=== PATIENT | male | born 1975 | race Caucasian/White ===

== ENCOUNTER 2018-08-04 20:30 | Emergency (ER) | payer MEDICAID ==
[2018-08-04] MEDS ORDERED: Proparacaine 0.5% Ophth Soln 15 ML Bottle EYERT ONE (20:51)
[2018-08-04 20:54] VITALS: BP 113/76
--- NOTE | 2018-08-04 21:16 | EDM.PDOC ---
ED HPI GENERAL MEDICAL PROBLEM - General Chief Complaint: ENT Problem Stated Complaint: SOMETHING IN EYE Time Seen by Provider: 08/04/18 20:45 Source of Information: Reports: Patient History Limitations: Reports: No Limitations - History of Present Illness INITIAL COMMENTS - FREE TEXT/NARRATIVE: 42-year-old male was working with metal today when he felt something touches right eye, this happened about 7 hours ago. Since that time he has had a persistent foreign body sensation and pain in his right eye. No visual disturbance but it's hard to keep his eye open, he has photophobia. Onset: Sudden Location: Reports: Other (Right eye) Severity: Moderate - Related Data Allergies Allergy/AdvReac Type Severity Reaction Status Date / Time No Known Allergies Allergy Verified 03/08/16 11:36 Home Meds: Home Meds NK [No Known Home Meds] 11/09/13 [History] Past Medical History - Past Health History Medical/Surgical History: Denies Medical/Surgical History Musculoskeletal History: Reports: Fracture - Infectious Disease History Infectious Disease History: Reports: Chicken Pox - Past Surgical History Musculoskeletal Surgical History: Reports: Arthroscopic Knee, Other (See Below) ED ROS GENERAL - Review of Systems Review Of Systems: See Below Constitutional: Denies: Fever, Chills HEENT: Reports: Eye Pain Respiratory: Denies: Shortness of Breath GI/Abdominal: Denies: Nausea, Vomiting Neurological: Denies: Headache Psychiatric: Reports: No Symptoms ED EXAM GENERAL W FULL EYE - Physical Exam Exam: See Below Exam Limited By: No Limitations General Appearance: Alert, Mild Distress Eye Exam: Right Eye: Foreign Body (Metal foreign body under the right upper eyelid) Eyelids: Right: Foreign Body Conjunctiva & Sclera: Right: Injected Cornea Exam: Right: Corneal Abrasion (Small abrasion along the upper aspect of the cornea correlating with the found metal foreign body under the eyelid) Course - Vital Signs Last Recorded V/S: Last Vital Signs Temp 97.3 F 08/04/18 21:18 Pulse 69 08/04/18 21:18 Resp 16 08/04/18 21:18 BP 113/76 08/04/18 21:18 Pulse Ox 100 08/04/18 21:18 - Orders/Labs/Meds Meds: Medications Discontinued Medications Generic Name Dose Route Start Last Admin Trade Name Freq PRN Reason Stop Dose Admin Proparacaine HCl 1 ml 08/04/18 20:51 08/04/18 21:10 Proparacaine 0.5% Ophth Soln EYERT 08/04/18 20:52 3 drop ONETIME ONE Administration - Re-Assessments/Exams Free Text/Narrative Re-Assessment/Exam: 08/04/18 21:14 Initially the right eye was anesthetized with proparacaine which almost immediately had complete relief. The eye was then examined and when the lids were inverted small metallic foreign body was found underneath the right upper eyelid. He was removed with a sterile Q-tip. Floor seen staining was then done with the right eye and abrasion correlating with the foreign body was seen on the cornea. No further foreign bodies were found, no slit-lamp exam was necessary. Patient was discharged on gentamicin eyedrops for the next 3 days and can follow-up with optometry if not significantly improved in the next 1-2 days. Departure - Departure Time of Disposition: 21:29 Disposition: Home, Self-Care 01 Condition: Good Clinical Impression: Foreign body of eyelid, right - Discharge Information Instructions: Eye Foreign Body Referrals: PCP,None [Primary Care Provider] - Forms: ED Department Discharge Care Plan Goals: Use 2 drops in the right eye 3-4 times a day for the next 3 days while healing. Recheck with optometry in the next 1-2 days if not improving satisfactorily.
== END 2018-08-04 21:28 | disposition home or self-care (01) ==
LOC: JP.ED 20:30
DX: T15.11XA Foreign body in conjunctival sac, right eye, initial encounter (principal)
CPT/HCPCS: 65220; 99283; A9270

== ENCOUNTER 2019-07-14 14:36 | Emergency (ER) | payer MEDICAID ==
[2019-07-14 15:48] VITALS: BP 106/58
[2019-07-14] MEDS ORDERED: Diphtheria,Pertussis(Acell),Tetanus Vaccine 0.5 ML SDV IM ONE (16:00)
[2019-07-14] MEDS ORDERED: Bacitracin Oint 1 GM U/D Packet TOP ONE (16:03)
--- NOTE | 2019-07-14 16:06 | EDM.PDOC ---
ED HPI GENERAL MEDICAL PROBLEM - General Chief Complaint: Laceration Stated Complaint: CUT FINGER Time Seen by Provider: 07/14/19 16:00 Source of Information: Reports: Patient, RN Notes Reviewed History Limitations: Reports: No Limitations - History of Present Illness INITIAL COMMENTS - FREE TEXT/NARRATIVE: 43-year-old gentleman presents emergency department today with a laceration to digit #4 left hand he injured himself on a piece of tin he needs a tetanus - Related Data Allergies Allergy/AdvReac Type Severity Reaction Status Date / Time No Known Allergies Allergy Verified 07/14/19 15:51 Home Meds: Home Meds NK [No Known Home Meds] 11/09/13 [History] Past Medical History Musculoskeletal History: Reports: Fracture - Infectious Disease History Infectious Disease History: Reports: Chicken Pox - Past Surgical History Musculoskeletal Surgical History: Reports: Arthroscopic Knee Social & Family History - Tobacco Use Smoking Status *Q: Current Every Day Smoker Years of Tobacco use: 20 Packs/Tins Daily: 1.5 - Caffeine Use Caffeine Use: Reports: Soda - Recreational Drug Use Recreational Drug Use: No ED ROS GENERAL - Review of Systems Review Of Systems: See Below Musculoskeletal: Reports: No Symptoms Skin: Reports: Wound Neurological: Reports: No Symptoms ED EXAM, SKIN/RASH Exam: See Below Text/Narrative:: Examination of the left hand digit #4 there is a laceration completely through the dermis creating a skin flap on the pad of the distal aspect of digit number for full range of motion of all digits sensation is lost the pad however remainder of sensation and is intact around the finger radial pulses +2 ED SKIN PROCEDURES - Laceration/Wound Repair Left Digit - 4th (Ring) Appearance: Irregular, Mildly Contaminated Distal NVT: Neuro & Vascular Intact, No Tendon Injury Anesthetic Type: Digital Local Anesthesia - Lidocaine (Xylocaine): 1% Plain Local Anesthetic Volume: 2cc Skin Prep: Saline Saline Irrigation (cc's): 120 Exploration/Debridement/Repair: Wound Explored, In a Bloodless Field, Explored to Base Closed with: Sutures Lac/Wound length In cm: 4.0 Suture Size: 4-0 # of Sutures: 7 Suture Type: Nylon Sterile Dressing Applied: Nurse Tetanus Status Addressed: Yes Complications: No Course - Vital Signs Last Recorded V/S: Last Vital Signs Temp 96.2 F 07/14/19 15:54 Pulse 55 L 07/14/19 15:54 Resp 16 07/14/19 15:54 BP 106/58 L 07/14/19 15:54 Pulse Ox 96 07/14/19 15:54 - Orders/Labs/Meds Orders: Active Orders 24 hr Category Date Time Status Vaccines to be Administered [RC] PER UNIT ROUTINE Care 07/14/19 16:00 Active Meds: Medications Discontinued Medications Generic Name Dose Route Start Last Admin Trade Name Saran PRN Reason Stop Dose Admin Bacitracin 1 dose 07/14/19 16:03 07/14/19 16:09 Bacitracin Oint 1 Gm TOP 07/14/19 16:04 1 dose ONETIME ONE Administration Diphtheria/Tetanus/Acell Pertussis 0.5 ml 07/14/19 16:00 07/14/19 16:09 Adacel IM 07/14/19 16:01 0.5 ml .ONCE ONE Administration Lidocaine HCl 5 ml 07/14/19 16:03 07/14/19 16:10 Xylocaine-Mpf 1% INJECT 07/14/19 16:04 5 ml ONETIME ONE Administration Departure - Departure Time of Disposition: 16:39 Disposition: Home, Self-Care 01 Condition: Good Clinical Impression: Finger laceration Qualifiers: Encounter type: initial encounter Finger: ring finger Damage to nail status: without damage Foreign body presence: without foreign body Laterality: left Qualified Code(s): S61.215A - Laceration without foreign body of left ring finger without damage to nail, initial encounter - Discharge Information Instructions: Wound Care, Adult Referrals: PCP,None [Primary Care Provider] - Forms: ED Department Discharge Additional Instructions: Take full course of antibiotics, follow wound care instruction sheet, suture removal in 10 days, return to the emergency department or follow-up with primary care for suture removal - My Orders Last 24 Hours: My Active Orders 07/14/19 16:00 Vaccines to be Administered [RC] PER UNIT ROUTINE - Assessment/Plan Last 24 Hours: My Active Orders 07/14/19 16:00 Vaccines to be Administered [RC] PER UNIT ROUTINE Plan: Assessment Acuity = acute Site and laterality = 4 cm laceration distal tip digit #4 left hand Etiology = secondary to trauma Manifestations = none Location of injury = Home Lab values = none Plan Suture removal in 10 days, prescription written for Keflex 500 mg by mouth 3 times a day the level of contamination in the wound, follow-up with primary care or return to the emergency department for suture removal follow wound care instruction sheet This note was dictated using [employer] voice recognition software please call with any questions on syntax or grammar.
== END 2019-07-14 16:54 | disposition home or self-care (01) ==
LOC: JP.ED 14:36
DX: S61.215A Laceration without foreign body of left ring finger without damage to nail, initial encounter (principal); F17.210 Nicotine dependence, cigarettes, uncomplicated; Z23 Encounter for immunization; W26.8XXA Contact with other sharp object(s), not elsewhere classified, initial encounter
CPT/HCPCS: 12002; 90471; 90715; 99282; J2001

== ENCOUNTER 2022-12-13 13:23 | Emergency (ER) | payer MEDICAID ==
[2022-12-13 13:59] VITALS: BP 129/76; PULSE 69
[2022-12-13] MEDS ORDERED: Ketorolac 30 MG/ML SDV IM ONE (14:18)
[2022-12-13 14:53] LABS: ESTIMATED GFR 76 mL/min (>60)
[2022-12-13 16:08] LABS: LYME AB IgG Negative (Negative)
[2022-12-13 16:16] LABS: LYME AB IgM Negative (Negative)
== END 2022-12-13 15:28 | disposition home or self-care (01) ==
LOC: JP.ED 13:23
DX: M25.561 Pain in right knee (principal); G89.29 Other chronic pain; F17.210 Nicotine dependence, cigarettes, uncomplicated
CPT/HCPCS: 36415; 73562-26-RT; 73562-RT; 80048; 83605; 84550; 85025; 86140; 86618; 96372; 99283; J1885

== ENCOUNTER 2023-01-11 05:57 | Day surgery (SDC) | payer MEDICAID ==
[2023-01-11] MEDS ORDERED: Nozin Nasal Sanitizer NASBOTH ONE (06:30)
[2023-01-11] MEDS ORDERED: Lactated Ringers 1,000 ML IV SCH (06:30)
[2023-01-11] MEDS ORDERED: ceFAZolin 2 GM in Sodium Chloride 0.9% 50 ML IV ONE (06:30)
[2023-01-11] MEDS ORDERED: Bupivacaine 0.5% 50 ML MDV ONE (07:12)
[2023-01-11] MEDS ORDERED: Dexamethasone 4 MG/ML SDV ONE (07:16)
[2023-01-11] MEDS ORDERED: Propofol 200 MG/20 ML SDV ONE (07:16)
[2023-01-11] MEDS ORDERED: fentaNYL 250 MCG/5 ML SDV ONE (07:16)
[2023-01-11] MEDS ORDERED: Ondansetron 4 MG/2 ML SDV ONE (07:16)
[2023-01-11] MEDS ORDERED: Ketorolac 30 MG/ML SDV ONE (08:04)
[2023-01-11 08:11] LABS: ESTIMATED GFR 94 mL/min (>60)
[2023-01-11] MEDS ORDERED: Acetaminophen/HYDROcodone 325-5 MG Tab PO PRN ×2 (09:29→09:30)
[2023-01-11 11:05] VITALS: PULSE 64
[2023-01-11 12:19] VITALS: BP 112/61
== END 2023-01-11 12:55 | disposition home or self-care (01) ==
LOC: JP.SDS 05:57
PROVIDERS: ATTEND Specialist
DX: M23.221 Derangement of posterior horn of medial meniscus due to old tear or injury, right knee (principal); M65.88 Other synovitis and tenosynovitis, other site; S83.511A Sprain of anterior cruciate ligament of right knee, initial encounter; M25.861 Other specified joint disorders, right knee
CPT/HCPCS: 36415; 80053; 85025; A9270-GY; J0690; J1100; J1885; J2405; J2704; J3010; J3490; J7120

== ENCOUNTER 2023-04-18 10:41 | Emergency (ER) | payer MEDICAID ==
[2023-04-18] MEDS ORDERED: Bacitracin Oint 1 GM U/D Packet TOP ONE (11:56)
[2023-04-18] MEDS ORDERED: Lidocaine 1% with EPINEPHrine 1:100,000 50 ML MDV INFILT ONE (11:57)
[2023-04-18 13:03] VITALS: BP 129/78; PULSE 67
== END 2023-04-18 13:00 | disposition home or self-care (01) ==
LOC: JP.ED 10:41
DX: S81.811A Laceration without foreign body, right lower leg, initial encounter (principal); Z72.0 Tobacco use; W26.8XXA Contact with other sharp object(s), not elsewhere classified, initial encounter
CPT/HCPCS: 12004; 99283

== ENCOUNTER 2025-03-16 19:07 | Emergency (ER) | payer MEDICAID ==
[2025-03-16 19:19] VITALS: BP 138/81; PULSE 64
[2025-03-16] MEDS: Proparacaine 0.5% Ophth Soln 15 ML Bottle EYEBOTH ONE (19:35)
[2025-03-16] MEDS ORDERED: Ciprofloxacin 0.3% Ophth Soln 2.5 ML Bottle EYELF SCH (20:00)
== END 2025-03-16 19:48 | disposition home or self-care (01) ==
LOC: JP.ED 19:07
DX: T75.89XA Other specified effects of external causes, initial encounter (principal); F17.200 Nicotine dependence, unspecified, uncomplicated; W89.0XXA Exposure to welding light (arc), initial encounter
CPT/HCPCS: 99283; A9270

== ENCOUNTER 2025-04-17 20:01 | Emergency (ER) | payer MEDICAID ==
[2025-04-17 20:30] VITALS: BP 123/75; PULSE 63
[2025-04-17] MEDS: Bupivacaine 0.5% 10 ML SDV INJECT ONE (21:13)
== END 2025-04-17 22:30 | disposition home or self-care (01) ==
LOC: JP.ED 20:01
DX: S92.421A Displaced fracture of distal phalanx of right great toe, initial encounter for closed fracture (principal); S91.211A Laceration without foreign body of right great toe with damage to nail, initial encounter; F17.200 Nicotine dependence, unspecified, uncomplicated; W17.1XXA Fall into storm drain or manhole, initial encounter
CPT/HCPCS: 11760; 73660; 96372; 99283; J0665

== ENCOUNTER 2025-10-07 07:51 | Emergency (ER) | payer MEDICAID ==
[2025-10-07 08:11] VITALS: BP 128/90
[2025-10-07 08:57] VITALS: PULSE 71
== END 2025-10-07 09:11 | disposition home or self-care (01) ==
LOC: JP.ED 07:51
DX: L02.214 Cutaneous abscess of groin (principal); L04.1 Acute lymphadenitis of trunk; F17.200 Nicotine dependence, unspecified, uncomplicated; Z79.899 Other long term (current) drug therapy
CPT/HCPCS: 99283